=== PATIENT | male | born 1965 | race Caucasian/White ===

== ENCOUNTER → 2018-03-16 | Outpatient (CLI) | payer MEDICARE, OTHER | END | disposition home or self-care (01) | LOC: RAD 08:00 | DX: Z01.818 Encounter for other preprocedural examination (principal) | CPT/HCPCS: 71045 ==

== ENCOUNTER 2018-03-24 13:57 | Day surgery (SDC) | payer MEDICARE, OTHER ==
[2018-03-24] MEDS ORDERED: PROPOFOL 20 ML (15:54)
[2018-03-24] MEDS ORDERED: CEFAZOLIN 1 GM INJ (15:54)
[2018-03-24] MEDS ORDERED: MIDAZOLAM 1 MG/ML 2 ML INJ (16:23)
[2018-03-24] MEDS: BUPIVACAINE 0.5% (MPF) 30 ML INJ INJ (16:30)
[2018-03-24] MEDS: LIDOCAINE 2% (MDV) 20 ML INJ INJ (16:30)
[2018-03-24] MEDS ORDERED: LIDOCAINE 2% (MDV) 20 ML INJ (16:36)
[2018-03-24] MEDS ORDERED: BUPIVACAINE 0.5% (SDV) 30 ML INJ (16:36)
[2018-03-24] MEDS ORDERED: FENTAnyl 50 MCG/ML VIAL (16:42)
[2018-03-24] MEDS ORDERED: LABETALOL HCL 20MG INJ IV (17:30)
[2018-03-24] MEDS ORDERED: hydrALAzine 20 MG INJ IV (17:30)
[2018-03-24] MEDS ORDERED: MEPERIDINE 25 MG INJ IV (17:30)
[2018-03-24] MEDS ORDERED: FENTAnyl 50 MCG/ML VIAL IV ×2 (17:30)
[2018-03-24] MEDS ORDERED: METOCLOPRAMIDE 10 MG INJ IV (17:30)
[2018-03-24] MEDS ORDERED: ONDANSETRON 4 MG INJ IV (17:30)
== END 2018-03-24 18:37 | disposition home or self-care (01) ==
LOC: SDS 13:57
DX: M67.471 Ganglion, right ankle and foot (principal); E11.42 Type 2 diabetes mellitus with diabetic polyneuropathy
CPT/HCPCS: 28090; 71045; 82962; 88304

== ENCOUNTER → 2018-10-26 | Outpatient (CLI) | payer MEDICARE, OTHER | END | disposition home or self-care (01) | LOC: RAD 15:59 | DX: R05 Cough (principal) | CPT/HCPCS: 71046 ==

== ENCOUNTER → 2018-10-29 | Outpatient (CLI) | payer MEDICARE, OTHER | END | disposition home or self-care (01) | LOC: RAD 16:18 | DX: R05 Cough (principal); R13.10 Dysphagia, unspecified | CPT/HCPCS: 70490 ==